=== PATIENT | male | born 1950 | race Caucasian/White ===

== ENCOUNTER 2016-12-21 13:44 | Emergency (ER) | payer OTHER ==
[2016-12-21 14:13] VITALS: RESP 18
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
[2016-12-21 16:12] VITALS: BP 167/87; PULSE 87; TEMP 98.4
== END 2016-12-21 16:11 | disposition home or self-care (01) ==
LOC: EC 13:44
DX: S16.1XXA Strain of muscle, fascia and tendon at neck level, initial encounter (principal); I10 Essential (primary) hypertension; Z79.82 Long term (current) use of aspirin; Z79.51 Long term (current) use of inhaled steroids; Z79.84 Long term (current) use of oral hypoglycemic drugs; Z79.899 Other long term (current) drug therapy; V48.6XXA Car passenger injured in noncollision transport accident in traffic accident, initial encounter; Y92.410 Unspecified street and highway as the place of occurrence of the external cause
CPT/HCPCS: 70450; 72125; 99285